=== PATIENT | male | born 2000 | race Caucasian/White ===

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

== ENCOUNTER 2019-07-19 03:35 | Emergency (ER) | payer BC ==
[2019-07-19 05:51] LABS: INTERNATIONAL RATION (INR) 1.05; PROTHROMBIN TIME 13.7 SEC (11.4-15.4)
[2019-07-19 05:58] LABS: ABSOLUTE BASOPHILS # (AUTO) 0.1 10^3/uL (0.0-0.2); ABSOLUTE EOSINOPHILS # (AUTO) 0.2 10^3/uL (0.0-0.6); ABSOLUTE LYMPHOCYTES (AUTO) 1.3 10^3/uL (0.5-4.7); ABSOLUTE MONOCYTES (AUTO) 0.7 10^3/uL (0.1-1.4); BASOPHILS % (AUTO) 0.6 % (0-2); EOSINOPHILS % (AUTO) 2.7 % (0-6); HEMATOCRIT 45.6 % (37.9-51.0); LYMPHOCYTES % (AUTO) 15.9 % (13-45); MEAN CORPUSCULAR HEMOGLOBIN 30.4 pg (27.0-33.4); MEAN CORPUSCULAR HGB CONC 35.2 g/dL (32.0-36.0); MEAN CORPUSCULAR VOLUME 86 fl (80-97); MONOCYTES % (AUTO) 8.7 % (3-13); PLATELET COUNT 250 10^3/uL (150-450); RED BLOOD COUNT 5.27 10^6/uL (4.35-5.55); RED CELL DISTRIBUTION WIDTH 12.9 % (11.5-14.0); SEGMENTED NEUTROPHILS % (AUTO) 72.1 % (42-78); TOTAL CELLS COUNTED % (AUTO) 100 %; WHITE BLOOD COUNT 8.4 10^3/uL (4.0-10.5)
[2019-07-19 06:02] LABS: ALKALINE PHOSPHATASE 79 U/L (65-260); ANION GAP 11 (5-19); ASPARTATE AMINO TRANSFERASE 30 U/L (10-45); BILIRUBIN,DIRECT 0.3 mg/dL (0.0-0.4); BILIRUBIN,TOTAL 0.7 mg/dL (0.2-1.3); BLOOD UREA NITROGEN 15 mg/dL (7-20); CALCIUM 10.2 mg/dL (8.4-10.2); CARBON DIOXIDE 28 mmol/L (22-30); CHLORIDE 102 mmol/L (98-107); GLUCOSE 87 mg/dL (75-110); POTASSIUM 4.4 mmol/L (3.6-5.0); TOTAL PROTEIN 8.1 g/dL (6.3-8.2)
--- NOTE | 2019-07-19 08:21 | ER Document Report ---
ED General - General Chief Complaint: Rectal Bleeding Stated Complaint: BLOOD IN STOOL Time Seen by Provider: 07/19/19 07:54 Mode of Arrival: Ambulatory Information source: Patient Notes: 18-year-old male presents emergency department with reports of bloody stool 2 days in a row. He reports his first stool was hard and it had a streak of blood on top and reports today stool was soft and had a streak of blood on top. Reports the stools were both brown. Reports he has a history of constipation lately. Denies fever vomiting diarrhea. Denies past medical history of rectal bleeding. Reports he does not use any foreign bodies into his rectum. Reports maternal grandmother with history of breast cancer but no rectal cancer that he knows of. He reports his abdomen has a little discomfort but it feels more as city than anything. Reports he is eating drinking voiding as normal. TRAVEL OUTSIDE OF THE [place] IN LAST 30 DAYS: No - HPI Onset: Yesterday Onset/Duration: Sudden Quality of pain: Other - acidy Associated symptoms: None Exacerbated by: Denies, Standing Similar symptoms previously: No Recently seen / treated by doctor: No - Related Data Allergies/Adverse Reactions: No Known Allergies Allergy (Verified 07/19/19 03:47) Home Medications: BUSPAR Past Medical History - General Information source: Patient - Social History Smoking Status: Former Smoker Cigarette use (# per day): No Frequency of alcohol use: Occasional Drug Abuse: None Occupation: [employer] Family History: Malignancy - mgm breast cancer Patient has suicidal ideation: No Patient has homicidal ideation: No Psychiatric Medical History: Reports: Hx Anxiety, Hx Depression Past Surgical History: Reports: Hx Testicular Surgery - Immunizations Immunizations up to date: Yes Review of Systems - Review of Systems Notes: Review HPI for review of systems., All other systems negative Physical Exam - Vital signs Vitals: Temp Pulse Resp BP Pulse Ox 97.6 F 113 H 16 141/76 H 99 07/19/19 03:45 07/19/19 03:45 07/19/19 03:45 07/19/19 03:45 07/19/19 03:45 - General General appearance: Alert In distress: None - HEENT Head: Normocephalic Eyes: Normal Conjunctiva: Normal Neck: Normal, Supple. No: Lymphadenopathy - Respiratory Respiratory status: No respiratory distress Chest status: Nontender Breath sounds: Normal Chest palpation: Normal - Cardiovascular Rhythm: Regular Heart sounds: Normal auscultation, S1 appreciated, S2 appreciated Murmur: No - Abdominal Inspection: Normal Distension: No distension Bowel sounds: Normal Tenderness: Nontender Organomegaly: No organomegaly - Rectal Tenderness: No Stool: Heme positive Hemorrhoids: None - Back Back: Normal. No: CVA tenderness - Extremities General upper extremity: Normal ROM, Normal strength General lower extremity: Normal ROM, Normal strength - Neurological Neuro grossly intact: Yes Cognition: Normal Orientation: AAOx4 Wliey Coma Scale Eye Opening: Spontaneous Hale Coma Scale Verbal: Oriented Hale Coma Scale Motor: Obeys Commands Wiley Coma Scale Total: 15 Speech: Normal Cranial nerves: Normal - Psychological Associated symptoms: Normal affect, Normal mood - Skin Skin Temperature: Warm Skin Moisture: Dry Skin Color: Normal Course - Re-evaluation Re-evalutation: 07/19/19 18-year-old male presents to the emergency department with complaints of 2 episodes of bloody stool. He reports he went to the bathroom yesterday after being constipated and noted blood on his brown stool. He reports he had a soft stool today and noted blood on top of that also. Denies history of hemor rhoids. Denies history of cancers. Patient denies fever vomiting diarrhea. Reports his stomach feels a little acidy but he has been eating a lot of [employer] since he started working at [employer]. Labs are unremarkable. Rectal positive for blood. Patient denies abdominal pain. He was instructed on the importance of follow-up with GI for further evaluation. He was also instructed on signs and symptoms of bleeding return here for shortness of breath tired anemia. He verbalized understanding to all instructions. 07/19/19 18:10 Laboratory 07/19/19 07/19/19 07/19/19 05:34 05:34 05:34 WBC 8.4 RBC 5.27 Hgb 16.0 Hct 45.6 MCV 86 MCH 30.4 MCHC 35.2 RDW 12.9 Plt Count 250 Lymph % (Auto) 15.9 [place] % (Auto) 8.7 Eos % (Auto) 2.7 Baso % (Auto) 0.6 Absolute Neuts (auto) 6.0 Absolute Lymphs (auto) 1.3 Absolute Monos (auto) 0.7 Absolute Eos (auto) 0.2 Absolute Basos (auto) 0.1 Seg Neutrophils % 72.1 PT 13.7 INR 1.05 Sodium 141.2 Potassium 4.4 Chloride 102 Carbon Dioxide 28 Anion Gap 11 BUN 15 Creatinine 0.84 Est GFR ( Amer) > 60 Est GFR (MDRD) Non-Af > 60 Glucose 87 Calcium 10.2 Total Bilirubin 0.7 Direct Bilirubin 0.3 Neonat Total Bilirubin Not Reportable Neonat Direct Bilirubin Not Reportable Neonat Indirect Bili Not Reportable AST 30 ALT 27 Alkaline Phosphatase 79 Total Protein 8.1 Albumin 5.0 POC Stool Occult Blood 07/19/19 08:11 WBC RBC Hgb Hct MCV MCH MCHC RDW Plt Count Lymph % (Auto) [place] % (Auto) Eos % (Auto) Baso % (Auto) Absolute Neuts (auto) Absolute Lymphs (auto) Absolute Monos (auto) Absolute Eos (auto) Absolute Basos (auto) Seg Neutrophils % PT INR Sodium Potassium Chloride Carbon Dioxide Anion Gap BUN Creatinine Est GFR ( Amer) Est GFR (MDRD) Non-Af Glucose Calcium Total Bilirubin Direct Bilirubin Neonat Total Bilirubin Neonat Direct Bilirubin Neonat Indirect Bili AST ALT Alkaline Phosphatase Total Protein Albumin POC Stool Occult Blood POSITIVE - Vital Signs Vital signs: Temp Pulse Resp BP Pulse Ox 98.2 F 98 H 16 139/75 H 100 07/19/19 08:34 07/19/19 08:34 07/19/19 08:34 07/19/19 08:34 07/19/19 08:34 - Laboratory Result Diagrams: 07/19/19 05:34 07/19/19 05:34 Discharge - Discharge Clinical Impression: Rectal bleeding Condition: Stable Disposition: HOME, SELF-CARE Instructions: Gastroenterology, Rectal Bleeding, Unclear Cause ([facility]), Stool Softener ([facility]) Additional Instructions: *You have been evaluated for rectal bleeding *Follow up with a rn transplant within 1 week *Take a stool softener *Monitor your stools *Return to ED for worsening condition, changes, needs Monitor your blood pressure. Your blood pressure was elevated today. This may be because you were anxious, in pain or because you need medication. It is important to follow up with your primary care provider for full evaluation. Prescriptions: Bisacodyl [Dulcolax 5 Mg Tablet] 5 mg PO DAILY #15 tabec Forms: Elevated Blood Pressure, Return to Work
[2019-07-19 08:35] VITALS: BP 139/75
== END 2019-07-19 09:08 | disposition home or self-care (01) ==
LOC: ER 03:35
DX: K62.5 Hemorrhage of anus and rectum (principal)
CPT/HCPCS: 36415; 80053; 85025; 85610; 99283